=== PATIENT | male | born 1975 | race Caucasian/White ===

== ENCOUNTER 2017-03-04 07:37 | Day surgery (SDC) | payer OTHER ==
--- NOTE | 2017-03-02 08:58 | HP ---
DATE: 03/04/17 ADMISSION DIAGNOSIS: 1. VENTRAL HERNIA. ANTICIPATED PROCEDURE: 1. Repair. HISTORY OF PRESENT ILLNESS: Patient has ventral abdominal hernia, total left and slightly above the umbilicus. Presents for repair. PAST MEDICAL HISTORY: ALLERGIES: NONE. CURRENT MEDICATIONS: None. SURGERIES: Back surgery, gallbladder surgery, groin surgery. SOCIAL HISTORY: Negative. FAMILY HISTORY: Negative. REVIEW OF SYSTEMS: Negative. PHYSICAL EXAMINATION: Vital signs normal. CHEST: Clear. COR: Regular. ABDOMEN: Ventral hernia. PLAN: Repair.
[~2017-03-04 07:37] MED LIST: Lactated Ringers 1,000 ML IV ONE; Sensorcaine 0.25% 10 ML ONE
[2017-03-04] MEDS ORDERED: CEFAZOLIN 2 GM-D5W BAG** 50 ML IV ONE (07:45)
[2017-03-04] MEDS ORDERED: Pepcid 20 MG VIAL IV ONE (07:46)
[2017-03-04] MEDS ORDERED: SUBLIMAZE 100 MCG/2 ML IV ONE (08:00)
[2017-03-04] MEDS ORDERED: Zofran 4 MG/2 ML VIAL IV ONE (08:00)
[2017-03-04] MEDS ORDERED: BRIDION 200MG/2ML IV ONE (08:00)
[2017-03-04] MEDS ORDERED: DIPRIVAN 200 MG/20 ML IV ONE (08:00)
[2017-03-04] MEDS ORDERED: DILAUDID 2 MG INJECTION IV ONE (08:00)
[2017-03-04] MEDS ORDERED: Lactated Ringers 1,000 ML IV SCH (08:00)
[2017-03-04] MEDS ORDERED: Quelicin Fliptop 200 MG/10 ML IJ ONE (08:00)
[2017-03-04] MEDS ORDERED: Decadron 4 MG INJ IV ONE (08:00)
[2017-03-04] MEDS ORDERED: TORAdol 30 mg Injection IJ ONE (08:00)
[2017-03-04] MEDS ORDERED: Zemuron 100 MG/10 ML IJ ONE (08:00)
[2017-03-04] MEDS ORDERED: Transderm Scop 1.5MG Patch TOP PRN (08:22)
[2017-03-04] MEDS ORDERED: Transderm Scop 1.5MG Patch ONE (08:23)
[2017-03-04] MEDS ORDERED: KEFZOL 1 GM ONE (09:24)
[2017-03-04] MEDS ORDERED: APRESOLINE 20 MG/ML INJ ONE (10:10)
[2017-03-04] MEDS ORDERED: Xopenex 1.25 MG/0.5 ML UD NEBULE IH ONE ×2 (10:13→12:15)
[2017-03-04] MEDS ORDERED: Sodium Chloride 3 ML UD NEBULES IH ONE ×2 (10:14→12:15)
[2017-03-04] MEDS ORDERED: SUBLIMAZE 100 MCG/2 ML ONE ×2 (10:27→11:03)
[2017-03-04] MEDS ORDERED: Zofran 4 MG/2 ML VIAL ONE (10:27)
--- NOTE | 2017-03-04 12:07 | OP ---
SURGERY DATE/TIME: 03/04/2017901 PREOPERATIVE DIAGNOSIS: Ventral abdominal hernia. POSTOPERATIVE DIAGNOSIS: Ventral abdominal hernia. PROCEDURE: Ventral herniorrhaphy with mesh. SURGEON: Stu Mooney M.D. ANESTHESIA: General. COMPLICATIONS: None. CONDITION: Stable. INDICATION: A patient with symptomatic ventral abdominal hernia. DESCRIPTION OF PROCEDURE: Taken to surgery. General anesthetic. Routine prep and drape. Transverse incision. Just above and to the left of the umbilicus and marked preoperatively. A time out had been performed. Hernia sac was present. There was also small portion on the right upper edge this is all included in one field. Bicomponent medium sized mesh was placed and pulled up. The far right corner was addressed first. Under direct visualization three sutures placed there totally re-approximating and elevating into the fascia then this was brought up cephalad and caudad and then the left side which was most successful was semi-flat. Good approximation and hemostasis. The tacks had been brought over and tied down and then cut off. Subcutaneous tissue irrigated. Drain was placed. It was necessary to resect three portions of omentum and 8 inches, 6 inches and a 4 inch piece which were tied off with suture #2-0 Vicryl. The field was adequately dry. Drain secured. Sterile dressing applied. The patient tolerated the procedure satisfactorily.
[2017-03-04 14:35] VITALS: BP 143/85; PULSE 80; O2SAT 95
== END 2017-03-04 13:15 | disposition home or self-care (01) ==
LOC: SDC 07:37
PROVIDERS: ATTEND Surgery
PROC: 0WUF0JZ Supplement Abdominal Wall with Synthetic Substitute, Open Approach (ICD-10-PCS; principal; 2017-03-04)
DX: K43.9 Ventral hernia without obstruction or gangrene (principal)
CPT/HCPCS: 00832; 94640; J0330; J0360; J0690; J1100; J1170; J1885; J2405; J2704; J3010; A9270-GY

== ENCOUNTER 2020-04-25 09:56 | Emergency (ER) | payer OTHER ==
[2020-04-25 10:10] VITALS: PULSE 82; O2SAT 98
--- NOTE | 2020-04-25 10:16 | ERPHSYRPT ---
- History of Present Illness Time Seen by Provider: 04/25/20 10:05 Source: patient Patient Subjective Stated Complaint: PT states "I was playing softball a couple weeks ago and I felt something in my calf pop and now my family is afraid I have a blood clot." Triage Nursing Assessment: Pt presented alert and oriented X 3, skin pwd Pt ambulates with an upright steady gait, able to speak in clear full sentences pt right lower leg bruised and tender. Physician History: Patient is a 44-year-old male presents to our ED for evaluation to rule out DVT right lower extremity. Patient's family member is a nurse and advised patient to come to our ED for an ultrasound to rule out DVT. No history of DVT. Patient states he was playing softball approximately 2 weeks ago. Patient felt a pop in his right calf area. Since then he has had ecchymosis and swelling of his leg. Patient states his symptoms his pain and the ecchymosis are resolving. But his family became concerned because his symptoms are not completely resolved. No other complaints. No blunt trauma. No falls. No fever. No nausea or vomiting. No diarrhea. No rash. No lower extremity numbness tingling or weakness. Symptoms are mild to moderate in intensity. Pain worse w ith ambulation. Pain improved with rest. Patient declined pain medication. Patient voices no other complaints at this time. Method of Injury: sports injury Occurred: other (2 weeks ago) Quality: constant Severity of Pain-Max: moderate Severity of Pain-Current: mild Lower Extremities Pain: leg: right Modifying Factors: Improves With: movement Associated Symptoms: none Allergies/Adverse Reactions: No Known Drug Allergies Allergy (Verified 03/04/17 07:50) Home Medications: Cetirizine HCl [Zyrtec] 10 mg PO DAILY 03/04/17 [History] Hx Tetanus, Diphtheria Vaccination/Date Given: Yes Hx Influenza Vaccination/Date Given: Yes Hx Pneumococcal Vaccination/Date Given: No Immunizations Up to Date: Yes Travel Risk - International Travel Have you traveled outside of the country in past 3 weeks: No - Coronavirus Screening Are you exhibiting any of the following symptoms?: No Close contact with a COVID-19 positive Pt in past 14-21 Days: No - Review of Systems Constitutional: No Symptoms, No Fever, No Chills Eyes: No Symptoms Ears, Nose, & Throat: No Symptoms Respiratory: No Symptoms, No Cough, No Dyspnea Cardiac: No Symptoms, No Chest Pain, No Edema, No Syncope Abdominal/Gastrointestinal: No Symptoms, No Abdominal Pain, No Nausea, No Vomiting, No Diarrhea Genitourinary Symptoms: No Symptoms, No Dysuria Musculoskeletal: No Symptoms, No Back Pain, No Neck Pain Skin: No Symptoms, No Rash Neurological: No Symptoms, No Dizziness, No Focal Weakness, No Sensory Changes Psychological: No Symptoms Endocrine: No Symptoms Hematologic/Lymphatic: No Symptoms Immunological/Allergic: No Symptoms All Other Systems: Reviewed and Negative - Past Medical History Pertinent Past Medical History: Yes Neurological History: No Pertinent History ENT History: No Pertinent History Cardiac History: No Pertinent History Respiratory History: No Pertinent History Endocrine Medical History: No Pertinent History Musculoskeletal History: No Pertinent History GI Medical History: Gallbladder Disease, Hernia History: Other Psycho-Social History: No Pertinent History Male Reproductive Disorders: No Pertinent History Other Medical History: kidney stones - Past Surgical History Past Surgical History: Yes Neuro Surgical History: No Pertinent History Cardiac: No Pertinent History Respiratory: No Pertinent History Gastrointestinal: Cholecystectomy, Hernia Repair Genitourinary: Other Musculoskeletal: No Pertinent History Male Surgical History: No Pertinent History Other Surgical History: back/disc "wittled some off", kidney stone hx., lap.groin hernia repair, umbil.hernia repair, - Social History Smoking Status: Never smoker Exposure to second hand smoke: No Drug Use: none Patient Lives Alone: No - Nursing Vital Signs Nursing Vital Signs: Initial Vital Signs Temperature 97.7 F 04/25/20 09:59 Pulse Rate 82 04/25/20 09:59 Respiratory Rate 20 04/25/20 09:59 Blood Pressure 137/99 04/25/20 09:59 O2 Sat by Pulse Oximetry 98 04/25/20 09:59 Pain Scale Pain Intensity 3 - Physical Exam General Appearance: no apparent distress, alert Eyes, Ears, Nose, Throat Exam: moist mucous membranes Neck Exam: normal inspection, non-tender, supple Cardiovascular/Respiratory Exam: chest non-tender, normal breath sounds, regular rate/rhythm, no respiratory distress Gastrointestinal/Abdominal Exam: non-tender Back Exam: normal inspection, normal range of motion, No vertebral tenderness Hips Exam: bilateral: non-tender, normal inspection, normal range of motion, no evidence of injury Legs Exam: right leg: pain, soft tissue tenderness, swelling (No ecchymosis some swelling at the ankle and foot. However there is no pain or trauma at the ankle.), left leg: non-tender, normal inspection, normal range of motion, no boris dence of injury Knees Exam: bilateral knee: non-tender, normal inspection, normal range of motion, no evidence of injury Ankle Exam: bilateral ankle: non-tender, normal inspection, normal range of motion, no evidence of injury Foot Exam: bilateral foot: non-tender, normal inspection, normal range of motion, no evidence of injury Neuro/Tendon Exam: normal sensation, normal motor functions Mental Status Exam: alert, oriented x 3, cooperative Skin Exam: normal color, warm, dry SpO2 Interpretation: normal SpO2: 98 O2 Delivery: Room Air - Course Nursing assessment & vital signs reviewed: Yes - Radiology Ultrasound Exam Venous Lower Extremity Ultrasound: tele radiology report (Negative for DVT.) Ordered Tests: Active Orders 24 hr Category Date Time Status VENOUS UNILAT/LIMITED EXTREMIT [US] Stat Exams 04/25/20 10:10 Ordered - Progress Progress: unchanged Progress Note: 04/25/20 10:17 Patient reassessed. Patient declined pain medication. Ultrasound negative for DVT of right lower extremity. No indication for x-ray. Patient has no bony tenderness. Patient is involved extremities neurovascular intact distally. No indication for crutches. It appears that patient experienced muscle tear of his gastrocnemius soleus complex which caused the ecchymosis and swelling of his lower extremity. This appears to have been a relatively minor injury and is healing well. Patient is 2 weeks post injury and is ambulating and performing ADLs normally. Patient climbed pain medication. Patient declined crutches. Patient to follow-up with his primary care doctor within 48 hours for reevaluation. Patient voiced no other complaints or concerns at this time. 04/25/20 10:19 Counseled pt/family regarding: diagnosis, need for follow-up, rad results - Departure Departure Disposition: Home Clinical Impression: Gastrocnemius muscle tear Condition: Stable Critical Care Time: No Referrals: KARON ZUNIGA [Primary Care Provider] - Additional Instructions: Discharge/Care Plan REBECCA DOWNEY was seen on 04/25/20 in the Emergency Room. The patient was counseled regarding Diagnosis,Lab results, Imaging studies, need for follow up and when to return to the Emergency Room. Prescriptions given: Discharge Note I have spoken with the patient and/or caregivers. I have explained the patient's condition, diagnosis and treatment plan based on the information available to me at this time. I have answered the patient's and/or caregiver's questions and addressed any concerns. The patient and/or caregivers have as good understanding of the patient's diagnosis, condition and treatment plan as can be expected at this point. The vital signs have been stable. The patient's condition is stable and appropriate for discharge from the emergency department. The patient will pursue further outpatient evaluation with the primary care physician or other designated or consulting physician as outlined in the discharge instructions. The patient and/or caregivers are agreeable to this plan of care and follow-up instructions have been explained in detail. The patient and/or caregivers have received these instruction. The patient/and or caregivers are aware that any significant change in condition or worsening of symptoms should prompt an immediate return to this or the closest emergency department or call 911.
[2020-04-25 10:46] VITALS: BP 132/88
--- NOTE | 2020-04-25 11:09 | XRAY ---
Indication: Calf pain. Two-dimensional sonogram and color Doppler imaging of the major venous vessels of the right leg was performed. Comparison: None No thrombus seen in the examined deep venous vessels of the right leg including greater saphenous vein. Veins demonstrate normal compressibility. Venous waveforms are normal with and without augmentation. Impression: Right leg negative for DVT.
== END 2020-04-25 10:51 | disposition home or self-care (01) ==
LOC: ED 09:56
DX: S86.811A Strain of other muscle(s) and tendon(s) at lower leg level, right leg, initial encounter (principal); M79.661 Pain in right lower leg; Y93.64 Activity, baseball
CPT/HCPCS: 93971; 99283